=== PATIENT | female | born 1950 | race Caucasian/White ===

== ENCOUNTER 2018-11-23 08:39 | Inpatient (IN) | payer BC, MEDICAID ==
[~2018-11-23] VITALS: Ht 157.5 cm; Wt 87.1 kg
[~2018-11-23 08:39] MED LIST: ALBU8.5H4; ASPI-58 PO; BENA5TAB5 PO; FLUT1DIS3 IH; HYDR-3974 PO; TIOT18CA3 IH
[2018-11-23] MEDS ORDERED: NITROGLYCERIN 0.4 MG/TAB BOTTLE ONE (08:58)
[2018-11-23] MEDS ORDERED: NITROGLYCERIN 0.4 MG/TAB BOTTLE SL ONE (09:00)
[2018-11-23 09:08] LABS: BASOPHILS # (AUTO) 0.1 /CMM (0.0-0.2); EOSINOPHILS % (AUTO) 2.1 % (0.0-6.0); HEMATOCRIT 45 % (33-45); HEMOGLOBIN 15.4 g/dL (11.5-14.8); LYMPHOCYTES # (AUTO) 2.6 /CMM (0.8-4.8); LYMPHOCYTES % (AUTO) 30.9 % (20.0-44.0); MEAN CORPUSCULAR HGB CONC 34 g/dl (31.0-36.0); MEAN CORPUSCULAR VOLUME 97 fL (82-100); MONOCYTES # (AUTO) 0.9 /CMM (0.1-1.30); MONOCYTES % (AUTO) 10.5 % (2.0-12.0); NEUTROPHILS # (AUTO) 4.6 /CMM (1.8-8.9); NEUTROPHILS % (AUTO) 55.5 % (43.0-81.0); PLATELET COUNT (AUTO) 197 /CMM (150-450); RED BLOOD CELL COUNT(AUTO) 4.67 MIL/uL (4.0-5.2); WHITE BLOOD COUNT (AUTO) 8.3 K/uL (4.3-11.0)
[2018-11-23 09:17] LABS: CALCIUM, SERUM 9.2 mg/dL (8.5-10.1); CARBON DIOXIDE 30 mmol/L (21-32); CHLORIDE 104 mmol/L (98-107); GLUCOSE 106 mg/dL (74-106); POTASSIUM 3.5 mmol/L (3.5-5.1); SODIUM SERUM 143 mmol/L (136-145); UREA NITROGEN, BLOOD 17 mg/dL (7-18)
--- NOTE | 2018-11-23 09:19 | NUR ---
patient presented to the ER compaint of chest pain dull pain radiating to back. on room air, breathing evenly, and unlabored. connected to the monitor and pulse ox. kept comfortable, will continue to monitor accordingly.
[2018-11-23] MEDS ORDERED: ALBUTEROL FS 2.5 MG/3 ML VIAL.NEB ONE (09:38)
[2018-11-23] MEDS ORDERED: ENAL1TAB9 PO (09:56)
[2018-11-23] MEDS ORDERED: DOCU-141 PO (09:56)
[2018-11-23] MEDS ORDERED: ACET-868 PO (09:56)
[2018-11-23] MEDS ORDERED: ETAN50DI2 SQ (09:56)
[2018-11-23] MEDS ORDERED: ALBU8.5H8 INH (09:56)
[2018-11-23] MEDS ORDERED: ALBUTEROL FS 2.5 MG/3 ML VIAL.NEB NEB ONE (10:00)
[2018-11-23] MEDS ORDERED: IPRATROPIUM NEB FS 0.5 MG/2.5 ML AMPUL.NEB NEB ONE (10:00)
[2018-11-23] MEDS ORDERED: [UNRECOGNIZED DRUG - OTHER] PO SCH (11:00)
[2018-11-23] MEDS ORDERED: ACETAMINOPHEN 325 MG TABLET PO PRN (11:00)
[2018-11-23] MEDS ORDERED: ATORVASTATIN 40 MG TABLET PO SCH (11:00)
[2018-11-23] MEDS ORDERED: ASPIRIN EC 325 MG TABLET.DR PO SCH (11:00)
[2018-11-23] MEDS ORDERED: ENALAPRIL PO SCH (11:00)
[2018-11-23] MEDS ORDERED: HYDROCHLOROTHIAZIDE PO SCH (11:00)
[2018-11-23] MEDS ORDERED: HYDROCODONE/APAP 5/325MG 1 EACH TABLET PO PRN (11:00)
[2018-11-23] MEDS ORDERED: DOCUSATE SODIUM 100 MG CAPSULE PO PRN (11:00)
--- NOTE | 2018-11-23 11:18 | NUR ---
wheeled patient going to room 307-1 T, via acls protocol, on monitor, in no apparent distress noted. Anastasia on site and received the patient and for [place].
[2018-11-23 11:30] VITALS: BP 131/80
[2018-11-23] MEDS ORDERED: ZOLPIDEM TARTRATE 5 MG TABLET PO PRN (11:30)
[2018-11-23] MEDS ORDERED: PANTOPRAZOLE 40 MG TABLET.DR PO SCH (11:30)
[2018-11-23] MEDS ORDERED: ACETAMINOPHEN ES 500 MG TABLET PO PRN (11:30)
--- NOTE | 2018-11-23 11:30 | NUR ---
RN NOTE PT ARRIVED FROM ER IN STABLE CONDITION, AOX4, ON ROOM AIR, AMBULATORY, VS STABLE, CO HEADACHE AND BEING HUNGRY. AWAITING CTA HEART TO BE DONE TODAY, IV LEFT AC 20 G INTACT, PATENT. SR ON WAREHOUSE DIRECTOR. SAFETY MEASURES IN PLACE, CALL LIGHT WITHIN REACH, WILL MONITOR.
[2018-11-23 11:37] LABS: THYROID STIMULATING HORMONE 2.93 uIU/mL (0.358-3.74)
[2018-11-23] MEDS: METOPROLOL TARTRATE 25 MG TABLET PO SCH ×2 (13:07→18:00)
[2018-11-23] MEDS ORDERED: ALBUTEROL FS 2.5 MG/0.5 ML VIAL.NEB NEB PRN (13:30)
[2018-11-23] MEDS ORDERED: IV NS 0.9% 250 ML IV ONE (14:18)
[2018-11-23] MEDS ORDERED: CT SWABBABLE VALVE TRANS SET 1 EA INFUS.SET MC ONE (14:18)
[2018-11-23] MEDS ORDERED: IOHEXOL-350 100 ML VIAL IV ONE (14:18)
[2018-11-23] MEDS ORDERED: METOPROLOL TARTRATE INJ 5 MG/5 ML AMPUL ONE ×10 (14:21→15:13)
[2018-11-23 16:00] VITALS: BP 119/70
--- NOTE | 2018-11-23 16:00 | NUR ---
RN NOTE RECEIVED CALL FROM DR JARVIS STATING THAT THE CTA HEART IS NORMAL AND PT CAN GO HOME. WILL CARRY OUT ORDERS.
--- NOTE | 2018-11-23 17:47 | NUR ---
RN NOTE PT DISCHARGED HOME IN STABLE CONDITION, WITH FAMILY, VIA OWN TRANSPORTATION, DISCHARGE INSTRUCTIONS PROVIDED TO PT, TEACHING DONE, PT VERBALIZED UNDERSTANDING, EXIT CARE DONE, IV SITES REMOVED, ID BAND REMOVED, PRESCRIPTION PROVIDED TO PT, AND PAPER COPIES LEFT IN CHART.
[2018-11-23 18:00] VITALS: BP 119/70
[2018-11-28] MEDS ORDERED: ETANERCEPT 50 MG SQ SCH (11:00)
== END 2018-11-23 18:30 | disposition home or self-care (01) | DRG 392 ==
LOC: ER 08:40 → TELE 10:46
PROVIDERS: ADMIT Internal Medicine; ATTEND Internal Medicine
DX: K21.9 Gastro-esophageal reflux disease without esophagitis (principal); E78.5 Hyperlipidemia, unspecified; I10 Essential (primary) hypertension; J44.9 Chronic obstructive pulmonary disease, unspecified; M79.7 Fibromyalgia; Z79.82 Long term (current) use of aspirin; Z86.73 Personal history of transient ischemic attack (TIA), and cerebral infarction without residual deficits; Z90.710 Acquired absence of both cervix and uterus; Z87.891 Personal history of nicotine dependence; Z98.890 Other specified postprocedural states; M19.90 Unspecified osteoarthritis, unspecified site; Z90.49 Acquired absence of other specified parts of digestive tract; Z79.899 Other long term (current) drug therapy
CPT/HCPCS: 36415; 71045-TC; 75574; 80048-TC; 80061-TC; 84439-TC; 84443-TC; 84484-TC; 85025-TC; 85730-TC; 93307-TC; G0378; J3490; J7050; Q9967

== ENCOUNTER 2021-02-08 17:34 | Inpatient (IN) | payer BC, MEDICAID ==
[~2021-02-08] VITALS: Ht 154.9 cm; Wt 88.0 kg
[~2021-02-08 17:34] MED LIST changes: +ACET-868 PO; -ALBU8.5H4; +ALBU8.5H8 INH; -BENA5TAB5 PO; +DOCU-141 PO; +ENAL1TAB9 PO; +ETAN50SY SQ; -FLUT1DIS3 IH; -TIOT18CA3 IH
--- NOTE | 2021-02-08 17:45 | NUR ---
From home c/o left buttocks and right side abscess x 10 days, fever. Patient a/ox4, breathing even and unlabored, no sob noted, patient unable to sit on left side due to an open wound that popped open.
--- NOTE | 2021-02-08 18:39 | NUR ---
URINE SENT TO LAB. WOUND CULTURE FROM LEFT BUTTOCK SENT TO LAB.
[2021-02-08 18:42] LABS: BILIRUBIN,URINE Negative (NEGATIVE); COLOR,URINE YELLOW (YELLOW); LEUKOCYTE ESTERASE ,URINE Trace (NEGATIVE); NITRITE, URINE Negative (NEGATIVE); PROTEIN,URINE Negative (NEGATIVE); UGLUCOSE Negative (NEGATIVE); UROBILINOGEN,URINE 0.2 EU/dL (0.2)
[2021-02-08 18:44] LABS: BASOPHILS # (AUTO) 0.1 /CMM (0.0-0.2); BASOPHILS % (AUTO) 0.3 % (0.0-2.0); HEMATOCRIT 41 % (33-45); HEMOGLOBIN 13.9 g/dL (11.5-14.8); LYMPHOCYTES % (AUTO) 9.5 % (20.0-44.0); MEAN CORPUSCULAR HGB CONC 34 g/dl (31.0-36.0); MEAN CORPUSCULAR VOLUME 97 fL (82-100); MONOCYTES # (AUTO) 2.4 /CMM (0.1-1.30); MONOCYTES % (AUTO) 11.3 % (2.0-12.0); NEUTROPHILS # (AUTO) 16.3 /CMM (1.8-8.9); NEUTROPHILS % (AUTO) 77.9 % (43.0-81.0); PLATELET COUNT (AUTO) 248 /CMM (150-450); RED BLOOD CELL COUNT(AUTO) 4.25 MIL/uL (4.0-5.2)
[2021-02-08 18:58] LABS: BACTERIA,URINE Few /HPF (None Seen); SQUAMOUS EPITHELIAL CELL,UR Few /HPF (None Seen)
[2021-02-08 18:58] LABS: CALCIUM, SERUM 9.8 mg/dL (8.5-10.1); CARBON DIOXIDE 29 mmol/L (21-32); CHLORIDE 98 mmol/L (98-107); CREATININE 0.8 mg/dL (0.6-1.3); GLUCOSE 110 mg/dL (74-106); POTASSIUM 3.7 mmol/L (3.5-5.1); SODIUM SERUM 135 mmol/L (136-145); UREA NITROGEN, BLOOD 15 mg/dL (7-18)
[2021-02-08 19:00] LABS: YEAST,URINE Few /HPF (None Seen)
--- NOTE | 2021-02-08 19:03 | NUR ---
covid swab sent.
--- NOTE | 2021-02-08 19:05 | NUR ---
ENDORSED TO MYLA ROGEL FOR KAILEY.
[2021-02-08] MEDS ORDERED: PIPERACILLIN /TAZOBACTAM 3.375 G VIAL IV ONE (19:08)
[2021-02-08] MEDS ORDERED: MORPHINE SULFATE INJ 2 MG/ML DISP.SYRIN ONE (19:08)
[2021-02-08] MEDS ORDERED: ONDANSETRON HCL/PF 4 MG/2 ML VIAL ONE (19:08)
[2021-02-08 19:11] LABS: ALANINE AMINOTRANSFERASE 26 U/L (12-78); ALBUMIN 3.4 g/dL (3.4-5.0); ALKALINE PHOSPHATASE 73 U/L (46-116); ASPARTATE AMINOTRANSFERASE 22 U/L (15-37); BILIRUBIN,DIRECT 0.1 mg/dL (0.0-0.2); BILIRUBIN,TOTAL 0.6 mg/dL (0.2-1.0); TOTAL PROTEIN, SERUM 8.2 g/dL (6.4-8.2)
[2021-02-08] MEDS ORDERED: ACETAMINOPHEN 325 MG TABLET PO ONE (19:30)
[2021-02-08] MEDS ORDERED: PIPERACILLIN /TAZOBACTAM 3.375 G in IV D5W 50 ML IV ONE (19:30)
[2021-02-08] MEDS ORDERED: ONDANSETRON HCL/PF - ER 4 MG/2 ML VIAL IV ONE (19:30)
[2021-02-08] MEDS ORDERED: MORPHINE SULFATE INJ 2 MG/ML DISP.SYRIN IV ONE (19:30)
[2021-02-08] MEDS ORDERED: ACETAMINOPHEN 325 MG TABLET ONE (19:32)
--- NOTE | 2021-02-08 19:35 | NUR ---
CALL FROM LAB. RAPID COVID NEGATIVE.
--- NOTE | 2021-02-08 20:09 | NUR ---
PATIENT AMBULATED TO THE RESTROOM WITH A STEADY GAIT.
[2021-02-08] MEDS ORDERED: HYDROMORPHONE MDV 0.5 MG in IV D5W 50 ML IV PRN (21:00)
[2021-02-08] MEDS ORDERED: ZOLPIDEM TARTRATE 5 MG TABLET PO PRN (21:00)
[2021-02-08] MEDS ORDERED: ACETAMINOPHEN 325 MG TABLET PO PRN (21:00)
[2021-02-08] MEDS ORDERED: ONDANSETRON HCL/PF 4 MG/2 ML VIAL IV PRN (21:00)
[2021-02-08] MEDS ORDERED: ALBUTEROL SULFATE INH 18 GM HFA.AER.AD IH PRN (21:00)
[2021-02-08] MEDS ORDERED: DOCUSATE SODIUM 100 MG CAPSULE PO PRN (21:00)
[2021-02-08] MEDS ORDERED: CEFEPIME 1 GM in IV D5W 50 ML IV SCH (21:00)
[2021-02-08] MEDS ORDERED: LIDOCAINE 1%-EPI 1:100,000 20 ML VIAL ONE (22:08)
--- NOTE | 2021-02-08 22:19 | NUR ---
RALPH AT BEDSIDE FOR INCISION AND DRAINAGE
[2021-02-08] MEDS ORDERED: LIDOCAINE 1%-EPI 1:100,000 50 ML VIAL IJ ONE (22:30)
[2021-02-08] MEDS ORDERED: VANCOMYCIN 1.5 GM in IV D5W 500ml IV ONE (23:30)
--- NOTE | 2021-02-08 23:49 | NUR ---
REPORT GIVEN TO CHANDU ROGEL FOR KAILEY.
[2021-02-09] VITALS: BP 109/68
--- NOTE | 2021-02-09 | NUR ---
PATIENT TAKEN TO ASSIGNED ROOM FOR KAILEY
[2021-02-09] MEDS: HYDROMORPHONE 1 MG/1 ML DISP.SYRIN IV PRN ×2 (00:10→19:56)
--- NOTE | 2021-02-09 00:10 | NUR ---
RECEIVED PT FROM ER ALERT ORIENTED ON ROOM AIR SPO2 97% NO SIGN OF ANY SOB ABLE TO AMBULATE FROM GURNEY TO BED, COMPLAINING OF PAIN ON LEFT BUTTOCKS AREA WHERE THE I&D WAS DONE, V/S CHECKED AND RECORDED HEAD TO TOE ASSESSMENT DONE LEFT BUTTOCKS WOUND NOTED AND DOCUMENTED, I ALSO NOTICE SOME PSORIASIS ON THE BODY AND DOCUMENTED IT, ADMISSION ASSESSMENT DONE, ORIENTATION TO ROOM DONE, BELONGING ACCOUNTED FOR, BED ON LOWEST POSITION AND LOCKED SIDE RAILS UP X2 CALL LIGHT WITHIN REACH WILL CONT TO MONITOR
[2021-02-09] MEDS: IV 1/2NS 1000 ML 1,000 ML IV PRN ×2 (01:00→22:22)
[2021-02-09] MEDS ORDERED: VANCOMYCIN 1 GM VIAL ONE (01:18)
[2021-02-09] MEDS ORDERED: CEFEPIME 1 GM VIAL ONE (02:10)
[2021-02-09 04:00] VITALS: BP 98/63
--- NOTE | 2021-02-09 06:00 | NUR ---
SEEN AND EXAMINE BY DR HOYT WITH ORDER TOKEEP PT ON NPO FOR POSSIBLE SURGERY THIS AM TO LUNCH TIME, PT AWARE, CONSENT WAS SIGNED BY THE PT AND ON CHART WILL CONT TO MONITOR
[2021-02-09] MEDS: HYDROCODONE/APAP 5/325MG TABLET PO PRN ×2 (06:02→12:12)
[2021-02-09 06:06] LABS: BASOPHILS % (AUTO) 0.2 % (0.0-2.0); EOSINOPHILS % (AUTO) 1.5 % (0.0-6.0); HEMATOCRIT 40 % (33-45); HEMOGLOBIN 13.3 g/dL (11.5-14.8); LYMPHOCYTES # (AUTO) 1.7 /CMM (0.8-4.8); LYMPHOCYTES % (AUTO) 10.4 % (20.0-44.0); MEAN CORPUSCULAR HGB CONC 34 g/dl (31.0-36.0); MEAN CORPUSCULAR VOLUME 97 fL (82-100); MONOCYTES # (AUTO) 2.1 /CMM (0.1-1.30); MONOCYTES % (AUTO) 13.2 % (2.0-12.0); NEUTROPHILS # (AUTO) 11.9 /CMM (1.8-8.9); NEUTROPHILS % (AUTO) 74.7 % (43.0-81.0); PLATELET COUNT (AUTO) 228 /CMM (150-450)
--- NOTE | 2021-02-09 06:46 | NUR ---
MAXIPIME 1GM IV NOT ADMINISTERED @ 0500 DUE TO LAST DOSE WAS ONLY GIVEN AT 0300 CHARGE NURSE AWARE
[2021-02-09 07:03] LABS: CALCIUM, SERUM 9.2 mg/dL (8.5-10.1); CREATININE 0.7 mg/dL (0.6-1.3); POTASSIUM 3.4 mmol/L (3.5-5.1)
--- NOTE | 2021-02-09 07:20 | NUR ---
RN OPENING NOTE PATIENT RECEIVED RESTING IN SUPINE POSITION. PATIENT IS ON ROOM AIR, TOLERATING WELL, A&OX4 ABLE TO MAKE NEEDS KNOWN. NO COMPLAINTS OF SOB OR SIGNS OF RESPIRATORY DISTRESS NOTE AT THIS TIME. LAC #18 RUNNING NS AT 75 ML/HR. SAFETY PRECAUTIONS IMPLEMENTED, BED LOCKED IN LOWEST POSITION, SIDE RAILS UP X2, CALL LIGHT WITHIN REACH. WILL CONTINUE TO MONITOR AND PROVIDE CARE THROUGHOUT SHIFT.
[2021-02-09 08:00] VITALS: BP 103/65
[2021-02-09] MEDS: CEFEPIME 2 GM in IV D5W 100 ML IV SCH ×2 (08:38→21:47)
[2021-02-09] MEDS ORDERED: POTASSIUM CHLORIDE 20 MEQ TAB.PRT.SR PO ONE (09:00)
[2021-02-09] MEDS ORDERED: ENALAPRIL MALEATE (5 MG) 5 MG TABLET PO SCH (09:00)
[2021-02-09] MEDS ORDERED: HYDROCHLOROTHIAZIDE 25 MG TABLET PO SCH (09:00)
[2021-02-09] MEDS: ASPIRIN EC 325 MG TABLET.DR PO SCH (09:00)
[2021-02-09] MEDS ORDERED: ANESTHESIA TRAY IN PYXIS 1 EA TRAY MC ONE (14:05)
[2021-02-09 16:00] VITALS: BP 101/57
--- NOTE | 2021-02-09 19:21 | NUR ---
RN CLOSING NOTE PATIENT RESTING IN RIGHT LATERAL POSITION. PATIENT IS ON ROOM AIR, TOLERATING WELL, A&OX4 ABLE TO MAKE NEEDS KNOWN. NO COMPLAINTS OF SOB OR SIGNS OF RESPIRATORY DISTRESS NOTE AT THIS TIME. LAC #18 RUNNING NS AT 75 ML/HR. SAFETY PRECAUTIONS IMPLEMENTED, BED LOCKED IN LOWEST POSITION, SIDE RAILS UP X2, CALL LIGHT WITHIN REACH. PATIENT WILL BE NPO EXCEPT MEDS TONIGHT AT 9:00 PM FOR I&D SCHEDULED TOMORROW MORNING AT 5:30 AM. PATIENT DIET RESUMED FOR DINNER PER MD ORDERS. WILL ENDORSE CARE TO UPCOMING SHIFT.
--- NOTE | 2021-02-09 19:34 | NUR ---
RN NOTE RECEIVED PT IN BED, ALERT AND ORIENTED X4. NOT IN ANY DISTRESS. DENIES ANY SOB. COMPLAINS OF 8/10 PAIN ON LEFT BUTTOCK, DRESSING INTACT WITH MODERATE DRAINAGE. IV ON LAC PATENT AND INTACT, 0.45 % NS RUNNING AT 75 ML/HR. NO SIGNS OF INFILTRATION NOTED. INSTRUCTED PT SHE WILL BE ON NPO TONIGHT, VERBALIZES UNDERSTANDING. ALL SAFETY MEASURES IMPLEMENTED PER PROTOCOL. BED LOCKED IN LOWEST POSITION, SIDE RAILS UP. CALL LIGHT WITHIN REACH. WILL CONTINUE TO MONITOR.
[2021-02-09] MEDS: VANCOMYCIN 1 GM in IV D5W 250 ML IV SCH (19:54)
[2021-02-09 20:00] VITALS: BP 127/67
--- NOTE | 2021-02-09 22:28 | NUR ---
RN NOTE ENDORSE TO [facility] FOR KAILEY. NO DISTRESS NOTED. PT ALERT AND AWAKE.
[2021-02-10] MEDS: HYDROMORPHONE 1 MG/1 ML DISP.SYRIN IV PRN ×2 (01:06→22:39)
[2021-02-10 04:00] VITALS: BP 125/70
[2021-02-10] MEDS ORDERED: SUCCINYLCHOLINE CHLORIDE 20 MG/ML VIAL ONE (05:20)
[2021-02-10] MEDS ORDERED: ROCURONIUM BROMIDE 50 MG/5 ML ONE (05:20)
[2021-02-10] MEDS ORDERED: FENTANYL PF 100MCG/2ML AMPUL ONE ×2 (05:20→06:35)
--- NOTE | 2021-02-10 05:50 | NUR ---
RN notes Resting comfortably in bed with no distress. On room air, tolerating well. Complained of pain at the left buttocks, hydrocodone administered with relief. Alert and oriented x 4. Verbally able to communicate needs. Vital signs WNL. Ambulatory. Picked up by OR nurse for incision and drainage at 05:00. Will endorse to next shift for continuity of care.
--- NOTE | 2021-02-10 05:55 | NUR ---
RN notes Alert, awake with confusion. Able to verbally communicate needs. On nasal cannula at 2lpm and nocturnal bipap at night, tolerating well. No complaint of pain or discomfort. Kept clean and dry. Will endorse to next shift for continuity of care.
--- NOTE | 2021-02-10 07:20 | NUR ---
RN OPENING NOTE PATIENT RECEIVED FROM OR. PATIENT IS ON O2 TREATMENT VIA NC AT 2 LPM, TOLERATING WELL, A&OX4 ABLE TO MAKE NEEDS KNOWN. NO COMPLAINTS OF SOB OR SIGNS OF RESPIRATORY DISTRESS NOTED AT THIS TIME. LAC #18 RUNNING .45% NS AT 75 ML/HR. SAFETY PRECAUTIONS IMPLEMENTED, BED LOCKED IN LOWEST POSITION, SIDE RAILS UP X2, CALL LIGHT WITHIN REACH. WILL CONTINUE TO MONITOR AND PROVIDE CARE THROUGHOUT SHIFT.
[2021-02-10 08:21] VITALS: BP 119/76
[2021-02-10] MEDS: CEFEPIME 2 GM in IV D5W 100 ML IV SCH ×2 (09:08→21:58)
[2021-02-10] MEDS: HYDROCODONE/APAP 5/325MG TABLET PO PRN ×2 (09:09→16:36)
[2021-02-10] MEDS: ASPIRIN EC 325 MG TABLET.DR PO SCH (09:09)
[2021-02-10] MEDS: ENOXAPARIN SODIUM 40 MG/0.4 ML DISP.SYRIN SQ SCH (09:11)
[2021-02-10 09:13] LABS: BASOPHILS # (AUTO) 0.1 /CMM (0.0-0.2); BASOPHILS % (AUTO) 0.6 % (0.0-2.0); EOSINOPHILS % (AUTO) 0.3 % (0.0-6.0); HEMATOCRIT 40 % (33-45); LYMPHOCYTES % (AUTO) 7.3 % (20.0-44.0); MEAN CORPUSCULAR HGB CONC 33 g/dl (31.0-36.0); MEAN CORPUSCULAR VOLUME 98 fL (82-100); MONOCYTES # (AUTO) 0.5 /CMM (0.1-1.30); MONOCYTES % (AUTO) 3.6 % (2.0-12.0); NEUTROPHILS # (AUTO) 11.5 /CMM (1.8-8.9); NEUTROPHILS % (AUTO) 88.2 % (43.0-81.0); PLATELET COUNT (AUTO) 242 /CMM (150-450); RED BLOOD CELL COUNT(AUTO) 4.06 MIL/uL (4.0-5.2); WHITE BLOOD COUNT (AUTO) 13.1 K/uL (4.3-11.0)
--- NOTE | 2021-02-10 09:33 | NUR ---
WOUND CARE CONSULT: PT PRESENTS WITH SURGICAL DRESSING TO LEFT BUTTOCK, DRY AND INTACT. DISCUSSED SKIN PROTECTION AND WOUND CARE (ORDERED BY SURGEON) WITH RN. PT IS INDEPENDENT WITH BED MOBILITY AND IS CONTINENT. MD IN AGREEMENT WITH PLAN OF CARE.
[2021-02-10 09:37] LABS: CALCIUM, SERUM 8.8 mg/dL (8.5-10.1); CREATININE 0.8 mg/dL (0.6-1.3); POTASSIUM 4.3 mmol/L (3.5-5.1)
[2021-02-10 12:00] VITALS: BP 119/76
[2021-02-10] MEDS: VANCOMYCIN 1 GM in IV D5W 250 ML IV SCH (13:37)
--- NOTE | 2021-02-10 19:02 | NUR ---
RN CLOSING NOTE PATIENT RESTING IN RIGHT LATERAL POSITION. PATIENT IS ON ROOM AIR, TOLERATING WELL, A&OX4 ABLE TO MAKE NEEDS KNOWN. NO COMPLAINTS OF SOB OR SIGNS OF RESPIRATORY DISTRESS NOTED AT THIS TIME. LAC #18 INTACT AND PATENT. SAFETY PRECAUTIONS IMPLEMENTED, BED LOCKED IN LOWEST POSITION, SIDE RAILS UP X2, CALL LIGHT WITHIN REACH. WILL ENDORSE CARE TO UPCOMING SHIFT.
--- NOTE | 2021-02-10 19:30 | NUR ---
RN NOTE RECEIVED PT IN BED, ALERT AND ORIENTED X4. NOT IN ANY DISTRESS. ON ROOM AIR. DENIES ANY SOB. WOUND DRESSING ON LEFT BUTTOCK INTACT WITH MODERATE DRAINAGE, TOLERABLE PAIN. IV ON LAC PATENT AND INTACT, FLUSHES WELL. ALL SAFETY MEASURES IMPLEMENTED PER PROTOCOL. BED LOCKED IN LOWEST POSITION, SIDE RAILS UP. CALL LIGHT WITHIN REACH. WILL CONTINUE TO MONITOR.
[2021-02-10 20:00] VITALS: BP 118/67
[2021-02-10] MEDS ORDERED: Medication Not On Formulary EA (Etanercept (Enbrel) 50 MG) XX SCH (21:00)
[2021-02-11 04:00] VITALS: BP 114/57
[2021-02-11] MEDS: HYDROCODONE/APAP 5/325MG TABLET PO PRN ×2 (06:14→14:21)
--- NOTE | 2021-02-11 06:23 | NUR ---
RN NOTE PT IN BED, AWAKE, BREATHING EVEN AND UNLABORED. TOLERATING ROOM AIR. NO DISTRESS NOTED. COMPLAINS OF PAIN ON LEFT BUTTOCKS AND NECK, NORCO GIVEN ORDERED. PT REFUSED TO HAVE IV FLUIDS ALL NIGHT, PT DRINKING WELL. WOUND DRESSING INTACT. SAFETY MEASURES MAINTAINED. CALL LIGHT WITHIN REACH AT ALL TIMES.
[2021-02-11 06:24] LABS: BASOPHILS # (AUTO) 0.1 /CMM (0.0-0.2); BASOPHILS % (AUTO) 0.4 % (0.0-2.0); EOSINOPHILS % (AUTO) 1.8 % (0.0-6.0); HEMATOCRIT 38 % (33-45); HEMOGLOBIN 12.5 g/dL (11.5-14.8); LYMPHOCYTES % (AUTO) 14.5 % (20.0-44.0); MEAN CORPUSCULAR HGB CONC 33 g/dl (31.0-36.0); MEAN CORPUSCULAR VOLUME 97 fL (82-100); MONOCYTES # (AUTO) 1.4 /CMM (0.1-1.30); MONOCYTES % (AUTO) 10.2 % (2.0-12.0); NEUTROPHILS # (AUTO) 10.2 /CMM (1.8-8.9); NEUTROPHILS % (AUTO) 73.1 % (43.0-81.0); PLATELET COUNT (AUTO) 246 /CMM (150-450); RED BLOOD CELL COUNT(AUTO) 3.91 MIL/uL (4.0-5.2); WHITE BLOOD COUNT (AUTO) 13.9 K/uL (4.3-11.0)
[2021-02-11 06:39] LABS: CALCIUM, SERUM 8.8 mg/dL (8.5-10.1); CREATININE 0.7 mg/dL (0.6-1.3)
--- NOTE | 2021-02-11 07:25 | NUR ---
RN OPENING NOTE PATIENT RECEIVED RESTING IN RIGHT LATERAL POSITION. PATIENT IS ON ROOM AIR, TOLERATING WELL, A&OX4 ABLE TO MAKE NEEDS KNOWN. NO COMPLAINTS OF SOB OR SIGNS OF RESPIRATORY DISTRESS NOTE AT THIS TIME. LAC #18 INTACT AND PATENT. SAFETY PRECAUTIONS IMPLEMENTED, BED LOCKED IN LOWEST POSITION, SIDE RAILS UP X2, CALL LIGHT WITHIN REACH. WILL CONTINUE TO MONITOR AND PROVIDE CARE THROUGHOUT SHIFT.
[2021-02-11] MEDS ORDERED: VANCOMYCIN 1.25 GM in IV D5W 250 ML IV SCH (08:00)
[2021-02-11] MEDS: ASPIRIN EC 325 MG TABLET.DR PO SCH (08:17)
[2021-02-11] MEDS: ENOXAPARIN SODIUM 40 MG/0.4 ML DISP.SYRIN SQ SCH (08:19)
[2021-02-11] MEDS: CEFEPIME 2 GM in IV D5W 100 ML IV SCH (09:00)
[2021-02-11] MEDS ORDERED: HYDROGEN PEROXIDE 480 ML BOTTLE TP SCH (09:00)
[2021-02-11] MEDS: POVIDONE-IODINE OINT 28.4 GM TUBE TP SCH ×2 (09:00→17:00)
[2021-02-11 12:00] VITALS: BP 134/58
--- NOTE | 2021-02-11 12:10 | NUR ---
C/O BLEEDING POST REMOVAL OF PACKING.DR. BLOUNT REPACK WOUND WITH GAUZE AND APPLY PRESSURE DRESSING FOR 5 MINUTES .BLEEDING RESOLVED.
--- NOTE | 2021-02-11 12:12 | NUR ---
DR. BLOUNT ADVISED PATIENT MIGHT NEED TO STAY ONE MORE DAY .
[2021-02-11] MEDS: HYDROMORPHONE 1 MG/1 ML DISP.SYRIN IV PRN (12:24)
[2021-02-11] MEDS ORDERED: SULF1TAB48 PO (15:59)
--- NOTE | 2021-02-11 19:20 | NUR ---
PATIENT BLEEDING CONTROLLED. PATIENT DISCHARGED HOME WITH HOME HEALTH IN STABLE CONDITION. PATIENT LEFT IN PRIVATE CAR WITH DAUGHTER. DISCHARGE INSTRUCTIONS AND PAPERWORK PROVIDED WITH CLIENT PRIOR TO DISCHARGE.
== END 2021-02-11 19:16 | disposition home health service (06) | DRG 603 ==
LOC: ER 17:34 → MEDSG1 22:53
PROVIDERS: ADMIT Internal Medicine; ATTEND Internal Medicine
PROC: 0H98XZZ Drainage of Buttock Skin, External Approach (ICD-10-PCS; principal; 2021-02-08)
PROC: 0H98XZZ Drainage of Buttock Skin, External Approach (ICD-10-PCS; 2021-02-10)
PROC: 02HV33Z Insertion of Infusion Device into Superior Vena Cava, Percutaneous Approach (ICD-10-PCS; 2021-02-11)
PROC: B548ZZA Ultrasonography of Superior Vena Cava, Guidance (ICD-10-PCS; 2021-02-11)
DX: L02.31 Cutaneous abscess of buttock (principal); L03.317 Cellulitis of buttock; J44.9 Chronic obstructive pulmonary disease, unspecified; I10 Essential (primary) hypertension; E78.5 Hyperlipidemia, unspecified; Z98.890 Other specified postprocedural states; K21.9 Gastro-esophageal reflux disease without esophagitis; M19.90 Unspecified osteoarthritis, unspecified site; Z86.73 Personal history of transient ischemic attack (TIA), and cerebral infarction without residual deficits; Z79.899 Other long term (current) drug therapy; Z90.710 Acquired absence of both cervix and uterus; Z90.49 Acquired absence of other specified parts of digestive tract; M79.7 Fibromyalgia; Z98.1 Arthrodesis status; Z87.891 Personal history of nicotine dependence; Z79.51 Long term (current) use of inhaled steroids; Z79.82 Long term (current) use of aspirin
CPT/HCPCS: 36410; 36415; 71045-TC; 80048-TC; 80076-TC; 80202-TC; 81001; 83605-TC; 84484-TC; 85025-TC; 85730-TC; 87040-TC; 87070-TC; 87075-TC; 87081-TC; 87086-TC; 97116-TC; 97530-TC; A6253; A6403; A6407; C9803; G0378; J0330; J0692; J1100; J1170; J1650; J2270; J2405; J2543; J2704; J3010; J3370; J3490; J7040; J7060

== ENCOUNTER 2022-03-23 14:10 | Emergency (ER) | payer BC, OTHER ==
[~2022-03-23] VITALS: Ht 165.1 cm; Wt 88.6 kg
[~2022-03-23 14:10] MED LIST changes: -ACET-868 PO; +BACL10TA PO; +ENAL1TAB10 PO; -ENAL1TAB9 PO; +SULF1TAB48 PO; +TRAM50TA2 PO
--- NOTE | 2022-03-23 14:22 | NUR ---
BIBS FOR C/O DIZZINESS, N/V AND NEAR SYNCOPAL EPISODES X3 TODAY ALSO, C/O BACK PAIN 03/23, TOOK NORTRIPTYLINE 10 MG PO. HX BACK PAIN. THE PATIENT IS ALERT AND ORIENTED X4. IN ROOM AIR AND DENIES SOB. RESPIRATION REGULAR AND UNLABORED. THE PATIENT IS ATTACHED TO THE MONITOR. WILL CONTINUE TO MONITOR THE PATIENT.
[2022-03-23 15:00] LABS: BASOPHILS % (AUTO) 0.2 % (0.0-2.0); EOSINOPHILS % (AUTO) 1.8 % (0.0-6.0); HEMATOCRIT 41 % (33-45); HEMOGLOBIN 13.7 g/dL (11.5-14.8); LYMPHOCYTES # (AUTO) 1.9 K/uL (0.8-4.8); LYMPHOCYTES % (AUTO) 22.5 % (20.0-44.0); MEAN CORPUSCULAR HGB CONC 34 g/dl (31.0-36.0); MEAN CORPUSCULAR VOLUME 95 fL (82-100); MONOCYTES # (AUTO) 0.9 K/uL (0.1-1.30); MONOCYTES % (AUTO) 10.4 % (2.0-12.0); NEUTROPHILS # (AUTO) 5.5 K/uL (1.8-8.9); NEUTROPHILS % (AUTO) 65.1 % (43.0-81.0); PLATELET COUNT (AUTO) 263 K/uL (150-450); RED BLOOD CELL COUNT(AUTO) 4.31 MIL/uL (4.0-5.2); WHITE BLOOD COUNT (AUTO) 8.4 K/uL (4.3-11.0)
[2022-03-23] MEDS ORDERED: IV NS 0.9% 500 ML BAG IV ONE (15:30)
[2022-03-23 15:33] LABS: ALBUMIN 3.9 g/dL (3.4-5.0); BILIRUBIN,DIRECT 0.1 mg/dL (0.0-0.2); BILIRUBIN,TOTAL 0.3 mg/dL (0.2-1.0); CALCIUM, SERUM 9.4 mg/dL (8.5-10.1); CREATININE 1.1 mg/dL (0.6-1.3); POTASSIUM 4.1 mmol/L (3.5-5.1); TOTAL PROTEIN, SERUM 8.3 g/dL (6.4-8.2)
--- NOTE | 2022-03-23 15:50 | NUR ---
PT LEFT UNIT TO HAVE CT. PT STABLE AT THIS TIME
[2022-03-23] MEDS ORDERED: IOHEXOL-300 100 ML VIAL IV ONE (15:51)
[2022-03-23] MEDS ORDERED: IV NS 0.9% 250 ML IV ONE (15:51)
[2022-03-23 16:13] LABS: BILIRUBIN,URINE NEGATIVE (NEGATIVE); COLOR,URINE YELLOW (YELLOW); LEUKOCYTE ESTERASE ,URINE TRACE (NEGATIVE); NITRITE, URINE NEGATIVE (NEGATIVE); PH,URINE 6.5 (5.0-8.0); PROTEIN,URINE NEGATIVE (NEGATIVE); UGLUCOSE NEGATIVE (NEGATIVE); UROBILINOGEN,URINE 0.2 EU/dL (0.2)
--- NOTE | 2022-03-23 16:15 | NUR ---
PT RETURNED FROM CT
[2022-03-23 16:27] LABS: BACTERIA,URINE RARE /HPF (None Seen)
--- NOTE | 2022-03-23 16:42 | NUR ---
COVID ANTIGEN SWAB DONE AND SENT TO THE LAB
--- NOTE | 2022-03-23 16:50 | NUR ---
COVID RAPID TEST RESULT IS NEGATIVE.
--- NOTE | 2022-03-23 17:50 | NUR ---
MOVE SHEET SUBMITTED.
--- NOTE | 2022-03-23 18:30 | NUR ---
SPOKE TO CM [phone] AND GAVE CLINICALS
--- NOTE | 2022-03-23 19:22 | NUR ---
REPORT GIVEN TO DAY.
--- NOTE | 2022-03-23 19:58 | NUR ---
ER MD ON PHONE WITH AMY
--- NOTE | 2022-03-23 22:00 | NUR ---
PT ACCEPTED TO [facility] ACCEPTING ROOM 609 - TELE CALL FOR REPORT [phone] [employer] TO [employer] MANAGER PT AT [facility] ([facility]) [phone]
--- NOTE | 2022-03-23 22:31 | NUR ---
REPORT GIVEN TO DEEDEE ROGEL FROM [facility] FOR KAILEY
--- NOTE | 2022-03-23 22:47 | NUR ---
Pratima pearson in [facility] - 03/23/22 at 2320 by DREW REPORT GIVEN TO KIYA FROM [facility] FOR PT TO BE DC
[2022-03-23 23:30] VITALS: BP 120/73
--- NOTE | 2022-03-24 01:00 | NUR ---
SPOKE WITH JASPER FROM [facility]. CREW WILL BE HERE IN 15 TO 20 MINS TO TRANSPORT PT.
--- NOTE | 2022-03-24 02:06 | NUR ---
REPORT GIVEN TO EMT FROM [facility] FOR PT TO DC TO [facility]
== END 2022-03-24 03:07 | disposition short-term general hospital (02) ==
LOC: ER 14:26
DX: G45.9 Transient cerebral ischemic attack, unspecified (principal); M54.9 Dorsalgia, unspecified; Z20.822 Contact with and (suspected) exposure to COVID-19; M79.7 Fibromyalgia; J44.9 Chronic obstructive pulmonary disease, unspecified; K21.9 Gastro-esophageal reflux disease without esophagitis; I10 Essential (primary) hypertension; L40.50 Arthropathic psoriasis, unspecified; Z98.1 Arthrodesis status; Z90.710 Acquired absence of both cervix and uterus; Z88.1 Allergy status to other antibiotic agents; R10.9 Unspecified abdominal pain; Z79.82 Long term (current) use of aspirin; Z79.899 Other long term (current) drug therapy
CPT/HCPCS: 36415; 70470; 71045; 74176; 80048; 80076; 81001; 83605; 83690; 84484; 85025; 85652; 86140; 87086; 87426; 93005; 99285; J7040; J7050; Q9967; C9803

== ENCOUNTER 2022-04-20 13:56 | Emergency (ER) | payer BC, OTHER ==
[~2022-04-20] VITALS: Ht 154.9 cm; Wt 89.8 kg
[~2022-04-20 13:56] MED LIST changes: -SULF1TAB48 PO
[2022-04-20 14:26] VITALS: BP 147/85
== END 2022-04-20 15:05 | disposition home or self-care (01) ==
LOC: ER 14:02
DX: M65.331 Trigger finger, right middle finger (principal); I10 Essential (primary) hypertension; M79.7 Fibromyalgia; J44.9 Chronic obstructive pulmonary disease, unspecified; K21.9 Gastro-esophageal reflux disease without esophagitis; Z90.710 Acquired absence of both cervix and uterus; Z88.8 Allergy status to other drugs, medicaments and biological substances; Z60.2 Problems related to living alone; Z79.899 Other long term (current) drug therapy

== ENCOUNTER 2022-11-23 11:43 | Emergency (ER) | payer BC, OTHER ==
[~2022-11-23] VITALS: Ht 154.9 cm; Wt 89.4 kg
--- NOTE | 2022-11-23 12:15 | NUR ---
/PA AT BEDSIDE FOR EVAL
[2022-11-23] MEDS ORDERED: LORA10TA7 PO (12:52)
[2022-11-23] MEDS ORDERED: TRAM50TA2 PO (12:52)
[2022-11-23] MEDS ORDERED: FLUT16SP16 BNOSTRILS (12:52)
[2022-11-23] MEDS ORDERED: KETOROLAC TROMETHAMINE INJ 30 MG/ML VIAL ONE (12:57)
[2022-11-23] MEDS ORDERED: PROCHLORPERAZINE EDISYLATE 10 MG/2 ML VIAL ONE (12:57)
[2022-11-23] MEDS ORDERED: KETOROLAC TROMETHAMINE INJ 30 MG/ML VIAL IM ONE (13:00)
[2022-11-23] MEDS ORDERED: PROCHLORPERAZINE EDISYLATE 10 MG/2 ML VIAL IM ONE (13:00)
--- NOTE | 2022-11-23 13:05 | NUR ---
Patient discharged to home in stable condition. Written and verbal after care instructions given. Patient verbalizes understanding of instruction.
[2022-11-23 13:09] VITALS: BP 127/65
== END 2022-11-23 13:52 | disposition home or self-care (01) ==
LOC: ER 11:50
DX: J32.9 Chronic sinusitis, unspecified (principal); I10 Essential (primary) hypertension; J44.9 Chronic obstructive pulmonary disease, unspecified; K21.9 Gastro-esophageal reflux disease without esophagitis; Z90.710 Acquired absence of both cervix and uterus; Z98.890 Other specified postprocedural states; Z79.82 Long term (current) use of aspirin; Z60.2 Problems related to living alone; Z88.0 Allergy status to penicillin
CPT/HCPCS: 99284; 96372 ×2; J0780; J1885

== ENCOUNTER 2022-11-28 19:56 | Emergency (ER) | payer BC, OTHER ==
[~2022-11-28] VITALS: Ht 154.9 cm; Wt 89.4 kg
[~2022-11-28 19:56] MED LIST changes: +FLUT16SP16 BNOSTRILS; +LORA10TA7 PO
--- NOTE | 2022-11-28 21:59 | NUR ---
PATIENT TAKEN TO CT VIA [facility]
[2022-11-28] MEDS ORDERED: IBUP-1955 PO (22:58)
[2022-11-28] MEDS ORDERED: AMOX-430 PO (22:58)
--- NOTE | 2022-11-28 23:28 | NUR ---
Patient discharged to home in stable condition. Written and verbal after care instructions given. Patient verbalizes understanding of instruction.
[2022-11-29 03:18] VITALS: BP 129/71
== END 2022-11-28 23:30 | disposition home or self-care (01) ==
LOC: ER 20:00
DX: J32.9 Chronic sinusitis, unspecified (principal); J06.9 Acute upper respiratory infection, unspecified; I10 Essential (primary) hypertension; R09.81 Nasal congestion; R05.9 Cough, unspecified; J44.9 Chronic obstructive pulmonary disease, unspecified; K21.9 Gastro-esophageal reflux disease without esophagitis; Z90.710 Acquired absence of both cervix and uterus; Z98.890 Other specified postprocedural states; Z60.2 Problems related to living alone; Z79.82 Long term (current) use of aspirin; Z88.1 Allergy status to other antibiotic agents
CPT/HCPCS: 70450-TC

== ENCOUNTER 2023-11-26 08:29 | Emergency (ER) | payer BC, OTHER ==
[~2023-11-26] VITALS: Ht 154.9 cm; Wt 72.6 kg
[~2023-11-26 08:29] MED LIST changes: +AMOX-430 PO; +IBUP-1955 PO
[2023-11-26] MEDS ORDERED: ONDANSETRON HCL/PF 4 MG/2 ML VIAL ONE (09:08)
[2023-11-26] MEDS ORDERED: MECLIZINE HCL 25 MG TABLET ONE (09:09)
[2023-11-26] MEDS: IV NS 0.9% 500 ML BAG IV ONE (09:26)
[2023-11-26] MEDS: ONDANSETRON HCL/PF 4 MG/2 ML VIAL IVP ONE (09:27)
[2023-11-26] MEDS: MECLIZINE HCL 12.5 MG TABLET PO ONE (09:28)
[2023-11-26 09:31] LABS: BASOPHILS # (AUTO) 0.1 K/uL (0.0-0.2); BASOPHILS % (AUTO) 0.5 % (0.0-2.0); EOSINOPHILS # (AUTO) 0.2 K/uL (0.0-0.7); EOSINOPHILS % (AUTO) 1.3 % (0.0-6.0); HEMATOCRIT 37 % (33-45); HEMOGLOBIN 12.6 g/dL (11.5-14.8); LYMPHOCYTES # (AUTO) 2.5 K/uL (0.8-4.8); LYMPHOCYTES % (AUTO) 20.2 % (20.0-44.0); MEAN CORPUSCULAR HEMOGLOBIN 32 PG (26.0-33.0); MEAN CORPUSCULAR HGB CONC 34 g/dl (31.0-36.0); MEAN CORPUSCULAR VOLUME 92 fL (82-100); MONOCYTES # (AUTO) 0.9 K/uL (0.1-1.30); MONOCYTES % (AUTO) 7.3 % (2.0-12.0); NEUTROPHILS # (AUTO) 8.9 K/uL (1.8-8.9); NEUTROPHILS % (AUTO) 70.7 % (43.0-81.0); PLATELET COUNT (AUTO) 272 K/uL (150-450); RED CELL DISTRIBUTION WIDTH 13.6 % (11.5-15.0); WHITE BLOOD COUNT (AUTO) 12.6 K/uL (4.3-11.0)
[2023-11-26 09:45] LABS: CALCIUM, SERUM 9.7 mg/dL (8.5-10.1); CARBON DIOXIDE 30 mmol/L (21-32); CHLORIDE 97 mmol/L (98-107); CREATININE 0.9 mg/dL (0.6-1.3); GLUCOSE 108 mg/dL (74-106); INR 1.03 (0.91-1.10); PARTIAL THROMBOPLASTIN TIME 26.1 SEC (24.3-34.3); POTASSIUM 3.2 mmol/L (3.5-5.1); PROTHROMBIN TIME 10.9 SECS (9.2-11.1); SODIUM SERUM 138 mmol/L (136-145); UREA NITROGEN, BLOOD 16 mg/dL (7-18)
[2023-11-26 09:50] LABS: ALANINE AMINOTRANSFERASE 24 U/L (12-78); ALBUMIN 3.5 g/dL (3.4-5.0); ALKALINE PHOSPHATASE 76 U/L (46-116); ASPARTATE AMINOTRANSFERASE 17 U/L (15-37); BILIRUBIN,DIRECT 0.1 mg/dL (0.0-0.2); BILIRUBIN,TOTAL 0.5 mg/dL (0.2-1.0); TOTAL PROTEIN, SERUM 7.6 g/dL (6.4-8.2)
[2023-11-26] MEDS ORDERED: CT SWABBABLE VALVE TRANS SET 1 EA INFUS.SET MC ONE (10:02)
[2023-11-26] MEDS ORDERED: IV NS 0.9% 250 ML IV ONE (10:02)
[2023-11-26] MEDS ORDERED: IOHEXOL-350 100 ML VIAL IV ONE (10:02)
[2023-11-26 11:55] LABS: APPEARANCE,URINE CLEAR (CLEAR); BILIRUBIN,URINE NEGATIVE (NEGATIVE); BLOOD, URINE TRACE-INTA Ery/uL (NEGATIVE); COLOR,URINE YELLOW (YELLOW); KETONES,URINE NEGATIVE (NEGATIVE); LEUKOCYTE ESTERASE ,URINE TRACE (NEGATIVE); NITRITE, URINE NEGATIVE (NEGATIVE); PH,URINE 6.5 (5.0-8.0); PROTEIN,URINE NEGATIVE (NEGATIVE); UGLUCOSE NEGATIVE (NEGATIVE); UROBILINOGEN,URINE 0.2 EU/dL (0.2)
[2023-11-26 12:04] LABS: ADD URINE CULTURE NO; BACTERIA,URINE Rare /HPF (None Seen); SQUAMOUS EPITHELIAL CELL,UR Few /HPF (None Seen); WBC,URINE 0-2 /HPF (0-3)
[2023-11-26] MEDS ORDERED: MECL-159 PO (12:35)
[2023-11-26 13:00] VITALS: BP 120/77; TEMP 98.3; O2SAT 96
== END 2023-11-26 13:01 | disposition home or self-care (01) ==
LOC: ER 08:31
DX: R42 Dizziness and giddiness (principal); I10 Essential (primary) hypertension; M79.7 Fibromyalgia; J44.9 Chronic obstructive pulmonary disease, unspecified; K21.9 Gastro-esophageal reflux disease without esophagitis; Z88.8 Allergy status to other drugs, medicaments and biological substances; Z60.2 Problems related to living alone; Z79.899 Other long term (current) drug therapy
CPT/HCPCS: 99285; 70450; 96374; 71045; 96361; 93005 ×2; 70498; 70496; 85025; 80048; 80076; 81001; 36415; 84484; 85730; 82962; J8597; J2405; J7050; J7040; Q9967

== ENCOUNTER 2024-03-13 11:44 | Emergency (ER) | payer BC, MEDICAID ==
[~2024-03-13] VITALS: Ht 154.9 cm; Wt 74.8 kg
[~2024-03-13 11:44] MED LIST changes: +MECL-159 PO
[2024-03-13 11:53] VITALS: TEMP 98.6
[2024-03-13] MEDS ORDERED: HYDROCODONE/APAP 5/325MG TABLET ONE (12:04)
[2024-03-13] MEDS ORDERED: IBUPROFEN 600 MG TABLET ONE (12:05)
[2024-03-13] MEDS: IBUPROFEN 600 MG TABLET PO ONE (12:10)
[2024-03-13] MEDS: HYDROCODONE/APAP 5/325MG TABLET PO ONE (12:10)
[2024-03-13] MEDS ORDERED: IBUP-1953 PO (13:13)
[2024-03-13 13:25] VITALS: BP 141/87; O2SAT 97
== END 2024-03-13 13:26 | disposition home or self-care (01) ==
LOC: ER 11:49
DX: M25.511 Pain in right shoulder (principal); I10 Essential (primary) hypertension; J44.9 Chronic obstructive pulmonary disease, unspecified; K21.9 Gastro-esophageal reflux disease without esophagitis; L40.50 Arthropathic psoriasis, unspecified; Z90.710 Acquired absence of both cervix and uterus; Z88.1 Allergy status to other antibiotic agents; F10.10 Alcohol abuse, uncomplicated; Z60.2 Problems related to living alone; Y90.9 Presence of alcohol in blood, level not specified
CPT/HCPCS: 73060-TC

== ENCOUNTER 2024-07-05 10:18 | Emergency (ER) | payer BC, MEDICAID ==
[~2024-07-05] VITALS: Ht 167.6 cm; Wt 72.6 kg
[~2024-07-05 10:18] MED LIST changes: +IBUP-1953 PO
[2024-07-05 11:19] LABS: BASOPHILS % (AUTO) 0.6 % (0.0-2.0); EOSINOPHILS # (AUTO) 0.1 K/uL (0.0-0.7); EOSINOPHILS % (AUTO) 1.4 % (0.0-6.0); HEMATOCRIT 40 % (33-45); HEMOGLOBIN 13.3 g/dL (11.5-14.8); LYMPHOCYTES # (AUTO) 2.3 K/uL (0.8-4.8); LYMPHOCYTES % (AUTO) 26.5 % (20.0-44.0); MEAN CORPUSCULAR HEMOGLOBIN 31 PG (26.0-33.0); MEAN CORPUSCULAR HGB CONC 34 g/dl (31.0-36.0); MEAN CORPUSCULAR VOLUME 92 fL (82-100); MONOCYTES # (AUTO) 0.6 K/uL (0.1-1.30); MONOCYTES % (AUTO) 7.2 % (2.0-12.0); NEUTROPHILS # (AUTO) 5.5 K/uL (1.8-8.9); NEUTROPHILS % (AUTO) 64.3 % (43.0-81.0); PLATELET COUNT (AUTO) 207 K/uL (150-450); RED BLOOD CELL COUNT(AUTO) 4.31 MIL/uL (4.0-5.2); RED CELL DISTRIBUTION WIDTH 13.6 % (11.5-15.0); WHITE BLOOD COUNT (AUTO) 8.6 K/uL (4.3-11.0)
[2024-07-05 11:31] LABS: CALCIUM, SERUM 9.8 mg/dL (8.5-10.1); CARBON DIOXIDE 25 mmol/L (21-32); CHLORIDE 107 mmol/L (98-107); CREATININE 0.9 mg/dL (0.6-1.3); GLUCOSE 126 mg/dL (74-106); POTASSIUM 3.9 mmol/L (3.5-5.1); SODIUM SERUM 142 mmol/L (136-145); UREA NITROGEN, BLOOD 15 mg/dL (7-18)
[2024-07-05] MEDS ORDERED: IBUPROFEN 600 MG TABLET ONE (13:39)
[2024-07-05] MEDS ORDERED: HYDROCODONE/APAP 5/325MG TABLET ONE (13:39)
[2024-07-05] MEDS: IBUPROFEN 600 MG TABLET PO ONE (13:42)
[2024-07-05] MEDS: HYDROCODONE/APAP 5/325MG TABLET PO ONE (13:43)
[2024-07-05] MEDS ORDERED: CYCL5TAB PO (14:12)
[2024-07-05] MEDS ORDERED: IBUP-1490 PO (14:12)
[2024-07-05 14:51] VITALS: BP 128/68; TEMP 98.6; O2SAT 98
== END 2024-07-05 14:30 | disposition home or self-care (01) ==
LOC: ER 10:18
DX: M54.6 Pain in thoracic spine (principal); I10 Essential (primary) hypertension; J44.9 Chronic obstructive pulmonary disease, unspecified; K21.9 Gastro-esophageal reflux disease without esophagitis; Z90.49 Acquired absence of other specified parts of digestive tract; Z79.1 Long term (current) use of non-steroidal anti-inflammatories (NSAID); Z79.891 Long term (current) use of opiate analgesic; Z98.890 Other specified postprocedural states; Z79.899 Other long term (current) drug therapy; Z60.2 Problems related to living alone; Z88.1 Allergy status to other antibiotic agents
CPT/HCPCS: 36415; 71045-TC; 80048-TC; 84484-TC; 85025-TC

== ENCOUNTER 2024-09-28 17:37 | Emergency (ER) | payer BC, MEDICAID ==
[~2024-09-28] VITALS: Ht 154.9 cm; Wt 68.0 kg
[~2024-09-28 17:37] MED LIST changes: +CYCL5TAB PO; +IBUP-1490 PO
[2024-09-28 18:05] VITALS: TEMP 97.9
[2024-09-28] MEDS ORDERED: LIDOCAINE HCL/MPF 1% 30 ML VIAL IJ ONE (19:30)
[2024-09-28] MEDS: LIDOCAINE HCL/PF 1% 30 ML VIAL TP ONE (19:42)
[2024-09-28] MEDS ORDERED: IBUP-1490 PO (21:01)
[2024-09-28 22:02] VITALS: BP 125/87; O2SAT 98
== END 2024-09-28 21:27 | disposition home or self-care (01) ==
LOC: ER 17:46
DX: S63.254A Unspecified dislocation of right ring finger, initial encounter (principal); S83.91XA Sprain of unspecified site of right knee, initial encounter; S83.92XA Sprain of unspecified site of left knee, initial encounter; S60.221A Contusion of right hand, initial encounter; S09.90XA Unspecified injury of head, initial encounter; E78.00 Pure hypercholesterolemia, unspecified; I10 Essential (primary) hypertension; J44.9 Chronic obstructive pulmonary disease, unspecified; K21.9 Gastro-esophageal reflux disease without esophagitis; L40.50 Arthropathic psoriasis, unspecified; M17.12 Unilateral primary osteoarthritis, left knee; M79.7 Fibromyalgia; Z79.82 Long term (current) use of aspirin; Z79.899 Other long term (current) drug therapy; Z88.1 Allergy status to other antibiotic agents; Z90.49 Acquired absence of other specified parts of digestive tract; Z90.710 Acquired absence of both cervix and uterus; Z98.890 Other specified postprocedural states; W01.0XXA Fall on same level from slipping, tripping and stumbling without subsequent striking against object, initial encounter; Y93.89 Activity, other specified; Y92.480 Sidewalk as the place of occurrence of the external cause; Y99.8 Other external cause status
CPT/HCPCS: 99284; 26770; 70450; 73130 ×2; 73503; 73564; 73140; J3490 ×2; 73502